=== PATIENT | female | born 1960 | race Caucasian/White ===

== ENCOUNTER 2021-12-04 21:47 | Emergency (ER) | payer OTHER ==
[~2021-12-04] VITALS: Ht 165.1 cm; Wt 86.2 kg
== END 2021-12-05 01:24 | disposition home or self-care (01) ==
LOC: ER 21:47
DX: S61.212A Laceration without foreign body of right middle finger without damage to nail, initial encounter (principal); I10 Essential (primary) hypertension; Z23 Encounter for immunization; W26.0XXA Contact with knife, initial encounter; Z88.2 Allergy status to sulfonamides
CPT/HCPCS: 12001; 73140; 90471; 90714; 99283-25

== ENCOUNTER → 2022-08-02 | Outpatient (CLI) | payer OTHER | END | disposition home or self-care (01) | LOC: LAB SHORT 14:57 → LAB 14:57 | DX: L82.0 Inflamed seborrheic keratosis (principal) | CPT/HCPCS: 88305 ==

== ENCOUNTER 2023-05-03 08:48 | Day surgery (SDC) | payer OTHER ==
[~2023-05-03] VITALS: Ht 165.1 cm; Wt 75.2 kg
[2023-05-03] MEDS ORDERED: ABILIFY MYCITE10 M2 (09:16)
[2023-05-03] MEDS ORDERED: BUTALB-ACETAMI1 EAC7 (09:17)
[2023-05-03] MEDS ORDERED: Prozac40 MG (09:17)
[2023-05-03] MEDS ORDERED: TOPI100 (09:18)
[2023-05-03] MEDS ORDERED: PROM12.5S (09:18)
[2023-05-03] MEDS ORDERED: SUMA25 (09:18)
[2023-05-03 12:16] VITALS: BP 117/80
== END 2023-05-03 11:25 | disposition home or self-care (01) ==
LOC: ORSCSDS 08:48
PROVIDERS: Surgery
PROC: 0DJD8ZZ Inspection of Lower Intestinal Tract, Via Natural or Artificial Opening Endoscopic (ICD-10-PCS; principal; 2023-05-03 10:15)
DX: Z12.11 Encounter for screening for malignant neoplasm of colon (principal); Z86.010 Personal history of colon polyps; K21.9 Gastro-esophageal reflux disease without esophagitis; F32.A Depression, unspecified; E78.5 Hyperlipidemia, unspecified; F41.9 Anxiety disorder, unspecified; Z79.899 Other long term (current) drug therapy
CPT/HCPCS: J2704; J7120

== ENCOUNTER → 2025-01-07 | Outpatient (CLI) | payer OTHER ==
[~2025-01-07] MED LIST: ABILIFY MYCITE10 M2; BUTALB-ACETAMI1 EAC7; PROM12.5S; Prozac40 MG; SUMA25; TOPI100
[2025-01-10 12:55] LABS: HPV HIGH RISK BY TMA Not Detected; HPV SOURCE Cervical
== END ==
LOC: LAB SHORT 14:58 → LAB 14:58
PROVIDERS: Family Medicine
DX: Z01.419 Encounter for gynecological examination (general) (routine) without abnormal findings (principal)
CPT/HCPCS: 87624; G0123